=== PATIENT | male | born 1970 | race Caucasian/White ===

== ENCOUNTER 2017-11-11 14:33 | Emergency (ER) | payer OTHER, SELFPAY ==
[2017-11-11 15:24] LABS: INR-International Normal Ratio 1.4; Prothrombin Time 17.6 SEC (12.0-14.7)
[2017-11-11] MEDS ORDERED: Enoxaparin Sodium 100 MG/ML SYRINGE ONE (15:38)
[2017-11-11] MEDS ORDERED: Ketorolac Tromethamine 60 MG/2 ML VIAL ONE (15:38)
--- NOTE | 2017-11-11 16:58 | RAD ---
RIGHT WRIST THREE VIEWS: 11/11/17 There probably was an old injury to the distal fifth metacarpal which is well healed. No carpal fract ure was seen. No area of bony destruction or significant arthritic change was noted. IMPRESSION: No acute findings. POS: HOME
== END 2017-11-11 16:51 | disposition home or self-care (01) ==
LOC: BURERS 14:33
DX: M10.9 Gout, unspecified (principal); F41.9 Anxiety disorder, unspecified; F32.9 Major depressive disorder, single episode, unspecified; F17.210 Nicotine dependence, cigarettes, uncomplicated; Z79.891 Long term (current) use of opiate analgesic; Z79.899 Other long term (current) drug therapy
CPT/HCPCS: 85610; 96372; J1650; J1885

== ENCOUNTER 2019-06-23 00:55 | Emergency (ER) | payer OTHER ==
[2019-06-23] MEDS ORDERED: Bicillin LA 1.2 MILLION UNITS/2 ML SYRINGE ONE (02:39)
== END 2019-06-23 01:22 | disposition home or self-care (01) ==
LOC: BURERS 00:55
DX: J02.9 Acute pharyngitis, unspecified (principal); M10.9 Gout, unspecified; F32.9 Major depressive disorder, single episode, unspecified; F17.210 Nicotine dependence, cigarettes, uncomplicated; Z79.01 Long term (current) use of anticoagulants
CPT/HCPCS: 96372; 99282; J0561